=== PATIENT | female | born 1980 | race Caucasian/White ===

== ENCOUNTER → 2019-08-12 08:53 | Outpatient (BNVA) | payer BC, SELFPAY | PROVIDERS: Visit Provider Nurse Practitioner | DX: I10 Essential (primary) hypertension (principal); F41.8 Other specified anxiety disorders; E04.9 Nontoxic goiter, unspecified; G47.10 Hypersomnia, unspecified | CPT/HCPCS: 80053; 80061; 81000; 84443; 85025 ==

== ENCOUNTER 2019-09-01 14:57 | Outpatient (CLI) | payer BC, SELFPAY ==
--- NOTE | 2019-09-01 15:00 | US_ITS ---
WS: [id number] ULTRASOUND THYROID TECHNIQUE: Ultrasound of the thyroid. CLINICAL INFORMATION: enlarged thyroid COMPARISON: None. FINDINGS: Technically difficult examination due to body habitus. Thyroid: Heterogeneous thyroid lobes bilaterally. Tortuous somewhat ill-defined. No dominant nodules Right thyroid lobe: 3.9 cm x 1.6 cm x 1.5 cm Left thyroid lobe: 4.0 cm x 1.2 cm x 1.4 cm. Isthmus: 0.8 mm. Cervical lymphadenopathy: None. US/US thyroid 50214 IMPRESSION: 1. Normal-sized heterogeneous thyroid gland. 2. No dominant nodules. 3. No other abnormalities.
== END 2019-09-01 14:58 | disposition home or self-care (01) ==
PROVIDERS: Visit Provider Nurse Practitioner
DX: E04.9 Nontoxic goiter, unspecified (principal)
CPT/HCPCS: 76536

== ENCOUNTER → 2019-09-20 13:05 | Outpatient (BNVA) | payer BC, SELFPAY | PROVIDERS: Referring Provider Dermatology; Visit Provider Dermatology | DX: L85.8 Other specified epidermal thickening (principal); L91.8 Other hypertrophic disorders of the skin; D23.9 Other benign neoplasm of skin, unspecified; L21.9 Seborrheic dermatitis, unspecified; L71.9 Rosacea, unspecified; W57.XXXA Bitten or stung by nonvenomous insect and other nonvenomous arthropods, initial encounter; X58.XXXA Exposure to other specified factors, initial encounter; Z12.83 Encounter for screening for malignant neoplasm of skin; Z80.8 Family history of malignant neoplasm of other organs or systems; Z85.828 Personal history of other malignant neoplasm of skin | CPT/HCPCS: 99203; 99204 ==

== ENCOUNTER 2019-10-04 12:00 | Outpatient (CLI) | payer BC, SELFPAY | END 2019-10-04 12:01 | disposition home or self-care (01) | LOC: SLEEP 10-05 15:27 | PROVIDERS: PCP Nurse Practitioner; Visit Provider Nurse Practitioner | DX: G47.10 Hypersomnia, unspecified (principal) | CPT/HCPCS: G0399 ==

== ENCOUNTER → 2021-01-30 10:29 | Outpatient (BNVA) | payer SELFPAY | PROVIDERS: PCP Nurse Practitioner; Visit Provider Dermatology | DX: Z01.89 Encounter for other specified special examinations (principal) ==

== ENCOUNTER → 2021-05-10 12:23 | Outpatient (BNVA) | payer OTHER, SELFPAY | PROVIDERS: PCP Nurse Practitioner; Visit Provider Nurse Practitioner | DX: J02.0 Streptococcal pharyngitis (principal); J10.1 Influenza due to other identified influenza virus with other respiratory manifestations | CPT/HCPCS: 87400; 87880 ==

== ENCOUNTER → 2022-04-30 11:46 | Outpatient (BNVA) | payer SELFPAY | PROVIDERS: PCP Nurse Practitioner; Visit Provider Dermatology | DX: Z01.89 Encounter for other specified special examinations (principal) ==

== ENCOUNTER → 2023-07-23 14:32 | Outpatient (BNVA) | payer OTHER, SELFPAY | PROVIDERS: PCP Nurse Practitioner; Visit Provider Nurse Practitioner | DX: F41.8 Other specified anxiety disorders (principal); I10 Essential (primary) hypertension; L68.0 Hirsutism; E04.9 Nontoxic goiter, unspecified; R53.83 Other fatigue | CPT/HCPCS: 80053; 80061; 82306; 82607; 83735; 84443 ==

== ENCOUNTER 2023-08-07 14:00 | Outpatient (CLI) | payer OTHER, SELFPAY ==
--- NOTE | 2023-08-07 14:00 | MM_ITS ---
WS: [id number] VIEWS: MLO and CC views both breasts. 3D digital tomosynthesis is also included in this exam. No previous studies Findings: There was no sign of mass, architectural distortion or suspicious calcification in either breast. The re are scattered areas of fibroglandular density MM/[place] [id number] Impression: BI-RADS: 1-Negative FOLLOW-UP: 1 Year Follow-up This mammogram was also analyzed by the Computer Aided Detection System [employer].
== END 2023-08-07 14:01 | disposition home or self-care (01) ==
PROVIDERS: PCP Nurse Practitioner; Visit Provider Nurse Practitioner
DX: Z12.31 Encounter for screening mammogram for malignant neoplasm of breast (principal)
CPT/HCPCS: 77063; 77067

== ENCOUNTER → 2024-06-23 15:28 | Outpatient (BNVA) | payer OTHER, SELFPAY | PROVIDERS: PCP Nurse Practitioner; Visit Provider Nurse Practitioner | DX: E55.9 Vitamin D deficiency, unspecified (principal); E04.9 Nontoxic goiter, unspecified; I10 Essential (primary) hypertension | CPT/HCPCS: 80053; 80061; 82306; 82607; 84443; 85025 ==

== ENCOUNTER → 2024-12-24 13:36 | Outpatient (BNVA) | payer OTHER, SELFPAY | PROVIDERS: PCP Nurse Practitioner; Visit Provider Clinical Nurse Specialist Adult Health | DX: R30.0 Dysuria (principal) | CPT/HCPCS: 81000 ==